=== PATIENT | female | born 1965 | race Caucasian/White ===

== ENCOUNTER 2018-10-29 20:28 | Emergency (ER) | payer MEDICAID ==
[~2018-10-29] VITALS: Ht 158.8 cm; Wt 64.0 kg
[2018-10-29 20:30] VITALS: BP 138/88
--- NOTE | 2018-10-29 20:55 | NUR ---
PT TO ED COMPLAINT OF ABDOMINAL PAIN X5 DAY. RADIATE TO BACK. DENIES N/V. BOWEL SOUNDS PRESENT X4. NO OBVIOUS DISTENTION NOTED. PT IN CHAIR NEXT TO BED WAITING FOR MD LEON.
[2018-10-29 21:53] LABS: APPEARANCE,URINE SL CLOUDY (CLEAR); BILIRUBIN,URINE NEGATIVE (NEGATIVE); BLOOD, URINE 3+ (NEGATIVE); COLOR,URINE YELLOW (YELLOW); LEUKOCYTE ESTERASE ,URINE NEGATIVE (NEGATIVE); NITRITE, URINE NEGATIVE (NEGATIVE); PH,URINE 7.5 (5.0-9.0); UGLUCOSE NEGATIVE (NEGATIVE)
[2018-10-29 22:07] LABS: BASOPHILS % (AUTO) 0.3 % (0.0-2.0); EOSINOPHILS # (AUTO) 0.1 K/uL (0-0.4); EOSINOPHILS % (AUTO) 1.8 % (0.0-4.0); HEMATOCRIT 35.9 % (36-48); HEMOGLOBIN 12.3 g/dL (12.0-16.0); LYMPHOCYTES # (AUTO) 1.7 K/uL (2.5-16.5); LYMPHOCYTES % (AUTO) 30.7 % (20.5-51.1); MEAN CORPUSCULAR HEMOGLOBIN 31 pg (27-31); MEAN CORPUSCULAR HGB CONC 34 g/dL (33-37); MEAN CORPUSCULAR VOLUME 90.3 fL (80-94); MONOCYTES # (AUTO) 0.5 K/uL (0.8-1.0); MONOCYTES % (AUTO) 8.5 % (1.7-9.3); NEUTROPHILS # (AUTO) 3.3 K/uL (1.8-7.7); NEUTROPHILS % (AUTO) 58.7 % (42.2-75.2); PLATELET COUNT (AUTO) 162 K/uL (140-450); RED BLOOD CELL COUNT(AUTO) 3.97 MIL/uL (4.20-5.40); RED CELL DISTRIBUTION WIDTH 12.5 % (11.6-13.7); WHITE BLOOD COUNT (AUTO) 5.6 K/uL (4.8-10.8)
[2018-10-29 22:12] LABS: WBC,URINE 0-5 /HPF (0-5)
[2018-10-29 22:44] LABS: ALBUMIN 3.5 g/dL (3.4-5.0); ANION GAP 11.8 (8-16); CREATININE 0.5 mg/dL (0.6-1.3); TOTAL BILIRUBIN 0.6 mg/dL (0.0-1.0)
[2018-10-29 22:46] LABS: POTASSIUM 2.8 mmol/L (3.5-5.1)
[2018-10-29] MEDS ORDERED: POTASSIUM CHLORIDE 10 MEQ TABER PO ONE (22:50)
--- NOTE | 2018-10-29 23:19 | NUR ---
Patient discharged with v/s stable. Written and verbal after care instructions given and explained. Patient alert, oriented and verbalized understanding of instructions. Ambulatory with steady gait. All questions addressed prior to discharge. ID band removed. Patient advised to follow up with PMD. Rx of PEPSCID given. Patient educated on indication of medication including possible reaction and side effects. DC'D BY DR SUE. Opportunity to ask questions provided and answered.
[2018-10-29 23:24] VITALS: BP 128/83
== END 2018-10-29 23:19 | disposition home or self-care (01) ==
LOC: MED 20:28
DX: K30 Functional dyspepsia (principal); Z98.890 Other specified postprocedural states
CPT/HCPCS: 36415; 80053; 81001; 81025; 82150; 83690; 85025; 99284

== ENCOUNTER 2019-05-29 06:25 | Emergency (ER) | payer MEDICAID ==
[~2019-05-29] VITALS: Ht 157.5 cm; Wt 63.0 kg
[2019-05-29 06:35] VITALS: BP 145/87
--- NOTE | 2019-05-29 06:35 | NUR ---
PT AMBULATED TO BED #7
--- NOTE | 2019-05-29 06:38 | NUR ---
54 YEAR OLD FEMALE COMPLAINS OF BURNING SENSATION DURING URINATION AND LOWER BACK PAIN SINCE LAST WEDNESDAY. PATIENT STATES THAT SHE DOES NOT KNOW IF THE BLOOD IS FROM IRREGULAR PERIOD OR FROM UTI. PATIENT AOX4, BREATHING EVEN AND UNLABORED, SKIN WARM AND DRY. BED IN LOWEST POSITION, LOCKED, BED RAIL UPX1. PMH - NONE ALLERGIES - NKA
[2019-05-29 06:58] LABS: APPEARANCE,URINE CLOUDY (CLEAR); BILIRUBIN,URINE NEGATIVE (NEGATIVE); BLOOD, URINE 3+ (NEGATIVE); COLOR,URINE DARK YELLOW (YELLOW); LEUKOCYTE ESTERASE ,URINE 2+ (NEGATIVE); NITRITE, URINE POSITIVE (NEGATIVE); PH,URINE 7.5 (5.0-9.0); UGLUCOSE NEGATIVE (NEGATIVE)
--- NOTE | 2019-05-29 07:06 | NUR ---
REPORT GIVEN TO CHEL CALVO AND MACY CALVO, TRANSFER OF CARE AT THIS TIME
--- NOTE | 2019-05-29 07:10 | NUR ---
RECEIVED REPORT FROM DAVID CALVO. PT IS SITTING IN BED WITH AT BEDSIDE. PT REPORTS PAIN 4/10 AT THIS TIME.
[2019-05-29 07:14] LABS: HYALINE CASTS, URINE 0-10 /LPF (None Seen); WBC,URINE 16-25 (MOD) /HPF (0-5)
[2019-05-29] MEDS ORDERED: KETOROLAC 60 MG/2 ML VIAL IM ONE (07:40)
--- NOTE | 2019-05-29 07:45 | NUR ---
TORADOL GIVEN PER ORDERS. VERIFIED PT NAME AND . NKA PER PT.
[2019-05-29 08:06] VITALS: BP 145/87
--- NOTE | 2019-05-29 08:07 | NUR ---
Patient discharged with v/s stable. Written and verbal after care instructions given and explained. Patient alert, oriented and verbalized understanding of instructions. Ambulatory with steady gait. All questions addressed prior to discharge. ID band removed. Patient advised to follow up with PMD. Rx of PYRIDIUM, MOTRIN AND CIPRO given. Patient educated on indication of medication including possible reaction and side effects. Opportunity to ask questions provided and answered.
== END 2019-05-29 08:07 | disposition home or self-care (01) ==
LOC: MED 06:25
DX: N39.0 Urinary tract infection, site not specified (principal); Z90.49 Acquired absence of other specified parts of digestive tract
CPT/HCPCS: 81001; 81025; 87086; 87186; 96372; 99283; J1885